=== PATIENT | female | born 2005 | race African-American/Black ===

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

== ENCOUNTER 2023-10-31 12:14 | Emergency (ER) | payer OTHER ==
[2023-10-31] MEDS ORDERED: Cyclobenzaprine 10 MG TAB ONE (13:32)
[2023-10-31] MEDS ORDERED: Ibuprofen 200 MG TAB ONE (13:32)
== END 2023-10-31 13:48 | disposition home or self-care (01) ==
LOC: ERS 12:14
DX: S39.012A Strain of muscle, fascia and tendon of lower back, initial encounter (principal); V47.5XXA Car driver injured in collision with fixed or stationary object in traffic accident, initial encounter; W22.10XA Striking against or struck by unspecified automobile airbag, initial encounter; Y92.410 Unspecified street and highway as the place of occurrence of the external cause
CPT/HCPCS: 99283